=== PATIENT | female | born 1985 | race Caucasian/White ===

== ENCOUNTER 2018-08-29 18:51 | Emergency (ER) | payer OTHER ==
[2018-08-29 18:59] VITALS: BP 120/73; PULSE 67; RESP 18; TEMP 97.9; O2SAT 98
[2018-08-29] MEDS ORDERED: Tdap Vaccine 0.5 ml Vial (10-64 yrs) IM ONE (19:29)
--- NOTE | 2018-08-29 19:32 | ED PDOC ---
HPI: Skin/Bite Injury Time Seen by Provider: 08/29/18 18:56 Chief Complaint (Nursing): Bite Chief Complaint (Provider): Dog bite History Per: Patient History/Exam Limitations: no limitations Onset/Duration Of Symptoms: Hrs (today) Current Symptoms Are (Timing): Still Present Location Of Injury: Left: Leg (lower) Additional Complaint(s): Mckenzie Guevara is a 33 year old female, with no significant past medical history, who presents to the emergency department for evaluation of a dog bite to left lower leg onset today. Patient states the dog was domestic but is unsure if his vaccinations are up to date. She was wearing pants at the time of injury. She denies any other medical complaints. Tetanus is not up to date. PMD: Darrel Lowry - Animal Bite Description Of The Animal: Other (domestic) Animal's Immunization Status: Unknown Past Medical History Reviewed: Historical Data, Nursing Documentation, Vital Signs Vital Signs: Last Vital Signs Temp 97.9 F 08/29/18 18:55 Pulse 67 08/29/18 18:55 Resp 18 08/29/18 18:55 BP 120/73 08/29/18 18:55 Pulse Ox 98 08/29/18 18:55 - Medical History PMH: No Chronic Diseases - Surgical History Surgical History: No Surg Hx - Family History Family History: States: Unknown Family Hx - Home Medications Home Medications: Ambulatory Orders Medication Instructions Recorded Amoxicillin/Clavulanate [Augmentin 1 tab PO BID #20 tab 08/29/18 875 MG-125 MG] - Allergies Allergies/Adverse Reactions: Allergies Allergy/AdvReac Type Severity Reaction Status Date / Time No Known Allergies Allergy Verified 08/29/18 18:55 Review of Systems ROS Statement: Except As Marked, All Systems Reviewed And Found Negative Musculoskeletal: Positive for: Leg Pain (lower leg dog bite) Physical Exam - Reviewed Nursing Documentation Reviewed: Yes Vital Signs Reviewed: Yes - Physical Exam Appears: Positive for: No Acute Distress Head Exam: Positive for: ATRAUMATIC, NORMOCEPHALIC Skin: Positive for: Normal Color, Warm, Dry Eye Exam: Positive for: Normal appearance Neck: Positive for: Painless ROM Respiratory: Negative for: Respiratory Distress Extremity: Positive for: Normal ROM (upper and lower extremities), Other (x3 superficial abrasions on left lateral lower leg with surrounding ecchymosis). Negative for: Deformity, Swelling Neurologic/Psych: Positive for: Alert, Oriented, Gait (steady) - ECG O2 Sat by Pulse Oximetry: 98 (RA) Pulse Ox Interpretation: Normal Medical Decision Making Medical Decision Making: Time: 18:56 Initial Impression: Dog bite Initial Plan: --Adacel 0.5ml IM -Patient is medically stable, and requires no further treatment in the ED at this time. Patient will be discharged home with Rx for Augmentin. Counseling was provided and all questions were answered regarding diagnosis and need for follow up with PMD. There is agreement to discharge plan. Return if symptoms persist or worsen. Scribe Attestation: Documented by Alexis Anthony, acting as a scribe for Kathryn Atkins PA-C Provider Scribe Attestation: All medical record entries made by the Scribe were at my direction and personally dictated by me. I have reviewed the chart and agree that the record a ccurately reflects my personal performance of the history, physical exam, medical decision making, and the department course for this patient. I have also personally directed, reviewed, and agree with the discharge instructions and disposition. Disposition - Clinical Impression Clinical Impression: Animal bite wound - Disposition Referrals: [facility],Darrel Calixto MD [Primary Care Provider] - Disposition: Routine/Home Disposition Time: 18:45 Condition: STABLE Prescriptions: Amoxicillin/Clavulanate [Augmentin 875 MG-125 MG] 1 tab PO BID #20 tab Instructions: Animal Bites (DC) Forms: [employer] ([place])
== END 2018-08-29 19:47 | disposition home or self-care (01) ==
LOC: H.ER 18:51 → SUPCPDRO 18:51 → H.ER 19:47
DX: S81.812A Laceration without foreign body, left lower leg, initial encounter (principal); W54.0XXA Bitten by dog, initial encounter; Y92.89 Other specified places as the place of occurrence of the external cause